=== PATIENT | female | born 1950 | race Caucasian/White ===

== ENCOUNTER 2023-11-06 06:57 | Day surgery (SDC) | payer MEDICARE, OTHER, SELFPAY ==
[2023-11-06 10:19] VITALS: BMI 22.1
[2023-11-06 10:32] VITALS: BP 158/82
== END 2023-11-06 12:45 | disposition home or self-care (01) ==
LOC: SDS 06:57
PROVIDERS: ATTENDING PHYSICIAN Internal Medicine Gastroenterology
DX: D12.2 Benign neoplasm of ascending colon (principal); D12.3 Benign neoplasm of transverse colon; K64.0 First degree hemorrhoids
CPT/HCPCS: 45390; 88305

== ENCOUNTER → 2024-01-18 15:36 | Outpatient (REF) | payer MEDICARE, OTHER, SELFPAY | LOC: HWWDC 15:36 | PROVIDERS: ATTENDING PHYSICIAN Family Medicine | DX: Z12.31 Encounter for screening mammogram for malignant neoplasm of breast (principal) | CPT/HCPCS: 77063; 77067 ==

== ENCOUNTER 2024-05-17 06:30 | Day surgery (SDC) | payer MEDICARE, OTHER, SELFPAY ==
[2024-05-17 08:11] VITALS: BMI 22.7
[2024-05-17 08:17] VITALS: BP 175/95
[2024-05-17 08:30] VITALS: BMI 22.7
[2024-05-17 09:33] VITALS: BP 121/69
[2024-05-17 09:35] VITALS: BP 121/69
[2024-05-17 09:45] VITALS: BP 139/76
[2024-05-17 10:00] VITALS: BP 137/79
[2024-05-17 10:15] VITALS: BP 115/84
== END 2024-05-17 10:28 | disposition home or self-care (01) ==
LOC: SDS 06:30
PROVIDERS: ATTENDING PHYSICIAN Internal Medicine Gastroenterology
DX: Z12.11 Encounter for screening for malignant neoplasm of colon (principal); D12.0 Benign neoplasm of cecum; K57.30 Diverticulosis of large intestine without perforation or abscess without bleeding; K64.0 First degree hemorrhoids; Z86.010 Personal history of colon polyps; Z98.890 Other specified postprocedural states
CPT/HCPCS: 45380; 88305

== ENCOUNTER → 2025-01-24 14:12 | Outpatient (REF) | payer MEDICARE, OTHER, SELFPAY | LOC: HWWDC 14:12 | PROVIDERS: ATTENDING PHYSICIAN Family Medicine | DX: Z12.31 Encounter for screening mammogram for malignant neoplasm of breast (principal) | CPT/HCPCS: 77063; 77067 ==

== ENCOUNTER 2025-06-01 06:23 | Day surgery (SDC) | payer MEDICARE, OTHER, SELFPAY | END 2025-06-01 12:26 | disposition home or self-care (01) | LOC: GI 06:23 | PROVIDERS: ATTENDING PHYSICIAN Internal Medicine Gastroenterology | DX: Z12.11 Encounter for screening for malignant neoplasm of colon (principal); K57.30 Diverticulosis of large intestine without perforation or abscess without bleeding; K64.8 Other hemorrhoids; Z86.0100 Personal history of colon polyps, unspecified; Z98.890 Other specified postprocedural states | CPT/HCPCS: G0105 ==